=== PATIENT | male | born 1990 | race Caucasian/White ===

== ENCOUNTER 2022-02-07 15:29 | Emergency (ER) | payer OTHER, SELFPAY ==
--- NOTE | ~2022-02-07 | CT_ITS ---
EXAMINATION: CT abdomen pelvis wo con DATE: 02/07/2022 16:55 INDICATION: Possible kidney stone TECHNIQUE: Computed tomography (CT) of the abdomen and pelvis was performed without intravenous contr ast. Automated exposure control and iterative reconstruction technique were employed. The dose-length product was 394.18 mGy-cm. COMPARISON: 03/01/2019. FINDINGS: Lower thorax: Unremarkable Liver: Normal. Biliary/Gallbladder: Gallbladder is normal. No bile duct dilation. Pancreas: No mass or duct dilation. Spleen: Normal. Adrenals:No mass. Kidneys: Mild right hydronephrosis and perinephric stranding. Nonobstructive left lower pole renal ca lcification. GI tract: No small or large bowel dilation. Appendix surgically absent. Mesentery/Peritoneum: No ascites, mass, or free air. Retroperitoneum: No mass. Pelvis: 5 mm obstructing calcification in the distal right ureter. Soft Tissues: Soft tissues and body wall unremarkable. Bones: No acute osseous finding. IMPRESSION: 5 mm distal right ureteral stone causing mild obstructive uropathy Reviewed, dictated and finalized at location K.
[2022-02-07 16:12] VITALS: BP 135/92; PULSE 60; RESP 16; TEMP 36.1; O2SAT 100
--- NOTE | 2022-02-07 16:42 | ED.ABDPAIN ---
HPI - Abdominal Pain General Chief Complaint: Abdominal Pain Stated Complaint: right sided abd pain Time Seen by Provider: 02/07/22 16:41 Related Data Allergies Allergy/AdvReac Type Severity Reaction Status Date / Time No Known Allergies Allergy Unverified 02/07/22 16:30 Course Vital Signs Vital signs: Vital Signs Temperature 36.1 C L 02/07/22 16:12 Pulse Rate 60 02/07/22 16:12 Respiratory Rate 16 02/07/22 16:12 Blood Pressure 135/92 H 02/07/22 16:12 Pulse Oximetry 100 02/07/22 16:12 Oxygen Delivery Room Air 02/07/22 16:12 Temperature 36.1 C L 02/07/22 16:12 Pulse Rate 60 02/07/22 16:12 Respiratory Rate 16 02/07/22 16:12 Blood Pressure 135/92 H 02/07/22 16:12 Pulse Oximetry 100 02/07/22 16:12 Oxygen Delivery Room Air 02/07/22 16:12 MDM - Abdominal Pain Imaging Data Radiologist's impression: Impressions Abdomen/Pelvis CT 02/07/22 17:12 IMPRESSION: 5 mm distal right ureteral stone causing mild obstructive uropathy Discharge Plan Discharge Instructions: Antibiotic Form Follow-up/Referrals: PHYSICIAN NOT ON STAFF,NONSTAFF [Primary Care Provider] -
[2022-02-07] MEDS: ONDANSETRON INJ 4 MG/2 ML VIAL IV PUSH (17:28)
[2022-02-07] MEDS: HYDROmorphone HCL INJ (*CRX) 1 MG/ML SYR 0.5 MG IV PUSH (17:28)
[2022-02-07 17:31] LABS: Basophils Absolute Auto 0.1 K/mm3 (0.0-0.1); Basophils Percent Auto 0.4 % (0.2-1.2); Eosinophils Absolute Auto 0.1 K/mm3 (0-0.3); Eosinophils Percent Auto 1.1 % (0-4.4); Hematocrit 44.7 % (42.0-52.0); Hemoglobin 15.2 g/dL (14.0-18.0); Immature Granulocyte Absolute 0.05 K/mm3 (0.00-0.031); Immature Granulocyte Percent A 0.4 % (0-0.5); Lymphocytes Absolute Auto 2.31 K/mm3 (0.9-3.2); Lymphocytes Percent Auto 20.2 % (18.3-44.2); Mean Corpuscular Volume 88.2 fl (80-100); Monocytes Absolute Auto 0.9 K/mm3 (0.1-0.6); Monocytes Percent Auto 7.8 % (2.6-8.5); Neutrophils Percent Auto 70.1 % (45.5-73.1); Platelet Count Result 303 k/mm3 (150-375); Red Blood Count 5.07 M/mm3 (4.6-6.20); Red Cell Distribution Width 13.6 % (11.5-14.5); White Blood Count 11.4 K/mm3 (4.5-10.0)
[2022-02-07 17:46] LABS: Appearance Urine Clear (Clear); Bilirubin Urine Negative (Negative); Blood Urine 3+ (Negative); Color Urine Yellow (Yellow); Glucose Urine UA Negative (Negative); Ketones Urine Negative (Negative); Leukocyte Esterase Ur Negative LEU/UL (Negative); Nitrate Urine Negative (Negative); Protein Urine Negative (Negative); Specific Grav Ur 1.025 (1.001-1.035); pH Urine 6.5 (5.0-9.0)
[2022-02-07 17:46] LABS: Alanine Aminotransferase 43 U/L (6-50); Albumin Level 4.7 g/dL (3.5-5.1); Alkaline Phosphatase 121 U/L (38-126); Anion Gap 10 mmol/L (8-16); Aspartate Amino Transferase 38 U/L (17-59); Bilirubin,Total 0.5 mg/dL (0.2-1.3); Blood Urea Nitrogen 14 mg/dL (9-20); Calcium 9.9 mg/dL (8.4-10.2); Carbon Dioxide 29 mmol/L (22-30); Chloride 99 mmol/L (98-107); Estimated CRCL calculation 81 ml/min; Estimated Glomerular Filt Rate > 60; Glucose 105 mg/dL (65-110); Lipase 67 U/L (23-300); Sodium 138 mmol/L (137-145)
[2022-02-07 17:54] LABS: Bacteria Urine Trace /hpf; Mucus Urine Rare /lpf; RBC Urine >75 /hpf (0-2); WBC Urine 0-3 /hpf
[2022-02-07 17:57] LABS: Add Urine Microscopic? YES
[2022-02-07] MEDS: KETOROLAC 30 MG/ML VIAL (*BKC) IV PUSH (18:28)
[2022-02-07] MEDS: TAMSULOSIN HCL 0.4 MG CAPSULE PO (18:28)
[2022-02-07 18:48] VITALS: BP 124/83; PULSE 61; RESP 18; O2SAT 96
--- NOTE | 2022-02-15 19:34 | ED.ABDPAIN ---
HPI - Abdominal Pain General Chief Complaint: Abdominal Pain Stated Complaint: right sided abd pain Time Seen by Provider: 02/07/22 16:41 Source: patient and family Mode of arrival: ambulatory Limitations: no limitations History of Present Illness HPI narrative: 31 years old white male presents with right lower quadrant pain and blood in the urine prior to arrival to the emergency room, history of kidney stone. He denies any fever, or chills Related Data Home Medications Medication Instructions Recorded Confirmed fluoxetine 20 mg capsule 20 mg PO DAILY 02/08/22 02/09/22 hydrocodone 5 mg-acetaminophen 325 1 tablet PO Q4H PRN Pain 02/08/22 02/09/22 mg tablet Allergies Allergy/AdvReac Type Severity Reaction Status Date / Time No Known Allergies Allergy Unverified 02/09/22 08:03 Review of Systems Review of Systems: All systems reviewed & are unremarkable except as noted in HPI and below PMFSH Past Medical History Medical History Anxiety Kidney stone Social History Social History Smoking status: Never smoker Alcohol intake: current Drinks per week: 10 Substance use: never Substance use type: does not use Spiritual care concerns: No Exam Narrative: General appearance: Well-developed, well-nourished Skin: Normal color Head: Normocephalic, nontraumatic Eyes: Clear conjunctiva ENT: Oropharynx normal, ears normal, nose normal Neck: Supple, nontender Chest and respiratory: Airway patent, no respiratory distress, no accessory muscle use Heart: Regular rate/rhythm Abdomen: Soft, right flank and right lower quadrant tenderness, no guarding or rebound, no organomegaly, quiet bowel sounds Vascular: Normal peripheral pulses, normal capillary refill. Musculoskeletal: Normal range of motion, nontender back Neurologic: Alert and oriented ?3, OVERLOCK HEMMER is normal as tested, no gross motor deficit Course Course Emergency Course: Kidney stone is my concern. Patient will be admitted for further management Vital Signs Vital signs: Vital Signs Temperature 36.1 C L 02/07/22 16:12 Pulse Rate 60 02/07/22 16:12 Respiratory Rate 16 02/07/22 16:12 Blood Pressure 135/92 H 02/07/22 16:12 Pulse Oximetry 100 02/07/22 16:12 Oxygen Delivery Room Air 02/07/22 16:12 Temperature 36.1 C L 02/07/22 16:12 Pulse Rate 61 02/07/22 18:48 Respiratory Rate 18 02/07/22 18:48 Blood Pressure 124/83 02/07/22 18:48 Pulse Oximetry 96 02/07/22 18:48 Oxygen Delivery Room Air 02/07/22 16:12 MDM - Abdominal Pain Differential Diagnosis Differential diagnosis: Likely abdominal pain, acute appendicitis, calculus of kidney, constipation and diverticulitis Lab Data Result diagrams: 02/07/22 17:08 02/07/22 17:08 Labs: Lab Results 02/07/22 02/07/22 02/07/22 Range/Units 17:08 17:08 17:38 WBC 11.4 H (4.5-10.0) K/mm3 RBC 5.07 (4.6-6.20) M/mm3 Hgb 15.2 (14.0-18.0) g/dL Hct 44.7 (42.0-52.0) % MCV 88.2 (80-100) fl MCH 30.0 (26-34) pg MCHC 34.0 (32-36) g/dl RDW 13.6 (11.5-14.5) % Plt Count 303 (150-375) k/mm3 MPV 9.0 (7.4-10.4) fl Immature Gran % (Auto) 0.4 (0-0.5) % Neut % (Auto) 70.1 (45.5-73.1) % Lymph % (Auto) 20.2 (18.3-44.2) % [place] % (Auto) 7.8 (2.6-8.5) % Eos % (Auto) 1.1 (0-4.4) % Baso % (Auto) 0.4 (0.2-1.2) % Lymph # (Auto) 2.31 (0.9-3.2) K/mm3 [place] # (Auto) 0.9 H (0.1-0.6) K/mm3 Eos # (Auto) 0.1 (0-0.3) K/mm3 Baso # (Auto) 0.1 (0.0-0.1) K/mm3 Abs Immat Gran (auto) 0.05 H
== END 2022-02-07 18:51 | disposition home or self-care (01) ==
PROVIDERS: Emergency Provider Emergency Medicine
DX: N13.9 Obstructive and reflux uropathy, unspecified (principal); N20.1 Calculus of ureter; F41.9 Anxiety disorder, unspecified; Z87.442 Personal history of urinary calculi
CPT/HCPCS: 36415; 74176; 80053; 81001; 83690; 85025; 96374; 96375; 99284; A9270; J1170; J1885; J2405

== ENCOUNTER 2022-02-09 01:06 | Day surgery (SDC) | payer OTHER, SELFPAY ==
[2022-02-08 15:38] VITALS: BMI 32.0
--- NOTE | 2022-02-08 15:43 | PC.NURSE ---
Report to the Outpatient Waiting Room, entrance under the green pavilion located off [facility], at time 0830 on date 02/09/22. OR Time: 1030. - You and your visitor will be asked to self-screen and do not enter if you have any COVID symptoms. - Only one visitor and NO children visitors are allowed at this time. - The patient visitor is requested to leave or wait in car when not with patient due to restrictions. - A mask is required within the hospital. Patients may have clear liquids (water, carbonated beverages, clear teas, apple juice) until 3 hours prior to surgery with a maximum of 20 ounces. - No food from midnight until time of surgery Take the following medications with a SIP of water the morning of surgery: FLUOXETINE, PAIN PILL (IF NEEDED) Medications to discontinue per physician: N/A Date to take last dose: N/A Please no make-up, nail [place], hairspray, perfume, deodorant, or body powder the day of surgery. No jewelry (including any body piercings) or valuables the day of surgery, leave them at home. Please take a shower or bath the night before, or the morning of, surgery with an antibacterial soap. Wear comfortable, loose fitting clothing. - Jewelry must be removed prior to entering the operating room. Rings and piercings that are not removed may be cut off. - The hospital will not accept responsibility for valuables. - Please leave all valuables, including medications, at home the day of surgery. If you are going home after surgery, a licensed restaurant delivery driver must drive you home. - NO public transportation without another adult. - We recommend that an adult stay with you for 24 hours following discharge. - We also recommend that you do not drive, make important decision, drink alcoholic beverages, or take any drugs that were not prescribed by your health care provider for at least 24 hours after your discharge time. Follow any additional instructions given to you from your surgeon. If you or anyone in your household have experienced Covid symptoms in the past week, please notify your surgeon or the nurse liaison at the phone number below for possible testing. Telephone instructions given to PT - SONIA FRENCH and asked if any additional questions and then verbalized understanding. Patient advised to call surgeon office or pre surgery nurse liaison [phone] if any additional questions.
[2022-02-09] VITALS (8 sets, daily range): BP systolic 112–127; BP diastolic 62–79; PULSE 62–77; RESP 16–20; TEMP 36.4–36.8; O2SAT 93–99
--- NOTE | ~2022-02-09 | XR_ITS ---
EXAMINATION: XR fluoroscopy no charge DATE: 02/09/2022 11:25 INDICATION: Right-sided ureteral stone extraction TECHNIQUE: 2 fluoroscopic images of the pelvis and lower abdomen were obtained during procedure perfo rmed by Dr. Silverman. Radiologist was not present for the imaging or procedure. The amount of fluorosco py time used during this procedure was 0.6 minutes. COMPARISON: None. FINDINGS: Images demonstrate a wire advanced along the expected course of the distal right ureter. The stone se en on the prior KUB is not visualized and may have been extracted. IMPRESSION: 1. Fluoroscopy utilized during reported right ureteral stone extraction. See procedure note for furth er detail. Reviewed, dictated and finalized at location A. IMPRESSION: 1. Fluoroscopy utilized during reported right ureteral stone extraction. See pr ocedure note for further detail.
--- NOTE | ~2022-02-09 | XR_ITS ---
EXAMINATION: XR abdomen/kub 1V DATE: 02/09/2022 08:26 INDICATION: Renal stone for planned lithotripsy. TECHNIQUE: A supine view of the abdomen on 2 radiographs was obtained. COMPARISON: CT dated 02/07/2022 FINDINGS: 3 mm gallstone at the distalmost right ureter. A second 2 2 mm stone is subtly visible at the lower p ole of the left kidney. Normal bowel gas pattern. Mild lumbar levocurvature. IMPRESSION: 1. Bilateral nephrolithiasis at the lower pole of the left kidney and in the distalmost right ureter. Reviewed, dictated and finalized at location A. IMPRESSION: 1. Bilateral nephrolithiasis at the lower pole of the left kidney and in the di stalmost right ureter.
--- NOTE | 2022-02-09 08:24 | SUR.PREOP ---
Patient concerned that pain is gone thinks he may have passed the stone though hasn't found in strainer. Discussed with Dr Silverman office and took patient for KUB but also informed patient lack of pain doesn't necessarily mean he's passed the stone.
--- NOTE | 2022-02-09 08:43 | WPDANESEPPF ---
Anes - Initial Pre Proc Eval Procedure: Operation Date: 02/09/22 10:30 Proposed Procedures p Cystoscopy, Right Ureteroscopy, Right Retrograde Pyelogram, Possible Right Stone Extraction, Possible Right Stent Placement, Possible Holmium Laser Procedure - Richard Silverman MD Date/Time: 02/09/22 08:43 Surgeon: Richard Silverman MD Pre Op Diagnosis: Right ureteral stone Patient Data Age: 31 Gender: M Height: 1.77 m Weight: 101.1 kg Last Vital Signs Temp 36.4 C L 02/09/22 08:29 Pulse 68 02/09/22 08:29 Resp 16 02/09/22 08:29 BP 121/79 02/09/22 08:29 Pulse Ox 99 02/09/22 08:29 O2 Del Method Room Air 02/09/22 08:29 Allergies Allergy/AdvReac Type Severity Reaction Status Date / Time No Known Allergies Allergy Unverified 02/09/22 08:03 Home Medications Medication Instructions Recorded Confirmed Type ondansetron 4 mg disintegrating 4 mg PO Q4H 3 days #18 tabs 02/07/22 02/08/22 Rx tablet tamsulosin 0.4 mg capsule (Flomax) 0.4 mg PO DAILY #14 caps 02/07/22 02/09/22 Rx fluoxetine 20 mg capsule 20 mg PO DAILY 02/08/22 02/09/22 History hydrocodone 5 mg-acetaminophen 325 1 tablet PO Q4H PRN Pain 02/08/22 02/09/22 History mg tablet Other studies: Abdomen/Pelvis CT? 02/07/22 17:12 IMPRESSION: ? 5 mm distal right ureteral stone causing mild obstructive uropathy Patient hx anesthesia problems: none Family hx anesthesia problems: none Results Review: All pre-operative results and documents have been reviewed as part of the pre-operative evaluation. [facility] Past Medical History Medical History (Updated 02/09/22 @ 08:44 by Cassius Gomez MD) Anxiety Kidney stone Social History Social History Smoking status: Never smoker Alcohol intake: current Drinks per week: 10 Substance use: never Substance use type: does not use Living arrangements: alone Spiritual care concerns: No Anes - Eval Final PreProcedure Day of Procedure 02/09/22 08:43 Patient weight: obese Heart: regular rate and rhythm Lungs: clear to auscultation and normal air movement Airway: Mallampati scale class II Neurological: alert and oriented Last oral intake: >/= 8 hours ASA classification: II Emergent: no Anesthetic plan: proceed Anesthesia type and monitoring: general LMA Results Review: All pre-operative results and documents have been reviewed as part of the pre-operative evaluation. Informed Consent: The patient's anesthetic plan and its attendant risks and benefits were discussed with the patient/family/POA. Questions were solicited and answers provided to the satisfaction of the patient/family/POA.
[2022-02-09] MEDS: LACTATED RINGERS 1,000 ML 30 ML IV CONT (09:14)
--- NOTE | 2022-02-09 10:42 | WPDHPUPDATE1 ---
History and Physical Update Update Date/Time: 02/09/22 10:42 History and Physical has been reviewed, including an updated exam of the patient. There are NO changes in the patient's condition. Risks, benefits, and alternatives have been discussed and questions answered. Patient agrees to proceed with procedure.
[2022-02-09] MEDS: ceFAZolin 2 GM/D5W 50 ML 2 GM/50 ML BAG IVPB (10:45)
[2022-02-09] MEDS: LIDOCAINE HCL 2% GEL UROJET 10 ML PKG MUCOUS MEM (11:10)
[2022-02-09] MEDS: KETOROLAC 30 MG/ML VIAL (*BKC) IV PUSH (11:20)
--- NOTE | 2022-02-09 11:22 | W.PM.PROC2 ---
Procedure Note - Detailed Date of Procedure 02/09/22 Pre-op Diagnosis Right ureteral stone Post-op Diagnosis Same Procedure Performed Cystoscopy, right ureteroscopy with stone extraction Surgeon Richard Silverman MD Description of Procedure The patient was brought to the operative suite where he is prepped and draped in a routine sterile fashion while in the dorsal lithotomy position after the uneventful induction of a general LMA anesthetic. A 19F rigid cystoscope was placed in the bladder. There are no urethral strictures. His prostatic urethra measures, approximately, 1.5cm with no median lobe enlargement. The bladder mucosa was endoscopically normal without hyperemia or neoplasm. There was a single, orthotopic ureteral orifice bilaterally. A 0.035 glidewire was advanced into the right renal pelvis under fluoroscopy. The distal ureter was dilated with an 8F/10F ureteral dilator. Ureteroscopy was undertaken with a short, tapered, semi-rigid ureteroscope and the stone was extracted with ease using a 1.9F Escape disposable stone basket. Due to the ease of this manipulation I opted not to place a ureteral stent. The patient's bladder was emptied and was taken to the recovery room having tolerated this procedure well. Drains No Packing No Pathology None sent Complications No immediate complications
== END 2022-02-09 12:46 | disposition home or self-care (01) ==
PROVIDERS: Visit Provider Urology
PROC: (CPT 52352; principal; 2022-02-09 10:30)
DX: N20.1 Calculus of ureter (principal)
CPT/HCPCS: 52352; 74018; 82365; 88300; 99199; A9270; C1769; J0690; J1100; J1885; J2250; J2405; J2704; J3010; J7120

== ENCOUNTER 2022-02-11 09:05 | Emergency (ER) | payer OTHER, SELFPAY ==
--- NOTE | ~2022-02-11 | CT_ITS ---
EXAMINATION: CT abdomen pelvis wo con DATE: 02/11/2022 09:35 INDICATION: Right flank pain TECHNIQUE: Computed tomography (CT) of the abdomen and pelvis was performed without intravenous contr ast. The dose-length product (DLP) was 335.78 mGy-cm. Automated exposure control and iterative recons truction technique were employed. COMPARISON: 02/07/2022 FINDINGS: Minimal dependent atelectasis is present in the lung bases. The heart size is normal. The l iver, spleen, pancreas, gallbladder, and adrenal glands are normal. There is a [address] one of the left kidney lower pole. The previously described right ureteral stone is no longer evident , consistent with interval treatment or passage. No stone fragments are identified in the urinary petty dder. There is mild persistent right hydroureteronephrosis. No pathologically enlarged abdominal or p elvic lymph nodes are identified. There is no free intraperitoneal gas or evidence of bowel obstructi on. There is a small umbilical hernia containing fat. IMPRESSION: 1. Interval treatment or passage of the previously described right distal ureteral stone with mild pe rsistent right hydroureteronephrosis. 2. Nonobstructing left nephrolithiasis. Reviewed, dictated and finalized at location B. IMPRESSION: 1. Interval treatment or passage of the previously described right distal urete ral stone with mild persistent right hydroureteronephrosis. 2. Nonobstructing left nephrolithiasis.
[2022-02-11 09:22] VITALS: BP 135/97; PULSE 57; RESP 18; TEMP 36.1; O2SAT 97
--- NOTE | 2022-02-11 09:22 | ED.BACK ---
HPI - Back Pain/Injury General Chief Complaint: Back Pain/Injury Stated Complaint: R FLANK PAIN S/P STONE EXTRACTION Time Seen by Provider: 02/11/22 09:12 Source: patient Mode of arrival: ambulatory Limitations: no limitations History of Present Illness HPI Narrative: 31 years old white female presents with right flank pain started yesterday, intermittent, no aggravating or relieving factors. Patient is status post right ureter kidney stone removed 2 days ago. Patient denies any fever, chills, nausea, vomiting. Currently denies any pain, patient received Clark prior to arrival to the emergency room Related Data Home Medications Medication Instructions Recorded Confirmed fluoxetine 20 mg capsule 20 mg PO DAILY 02/08/22 02/09/22 hydrocodone 5 mg-acetaminophen 325 1 tablet PO Q4H PRN Pain 02/08/22 02/09/22 mg tablet Allergies Allergy/AdvReac Type Severity Reaction Status Date / Time No Known Allergies Allergy Unverified 02/09/22 08:03 Review of Systems Review of Systems: All systems reviewed & are unremarkable except as noted in HPI and below PMFSH Past Medical History Medical History Anxiety Kidney stone Social History Social History Smoking status: Never smoker Alcohol intake: current Drinks per week: 10 Substance use: never Substance use type: does not use Spiritual care concerns: No Exam Narrative: General appearance: Well-developed, well-nourished Skin: Normal color Head: Normocephalic, nontraumatic Eyes: Clear conjunctiva ENT: Oropharynx normal, ears normal, nose normal Neck: Supple, nontender Chest and respiratory: Airway patent, no respiratory distress, no accessory muscle use Heart: Regular rate/rhythm Abdomen: Soft, nontender, no organomegaly, quiet bowel sounds Vascular: Normal peripheral pulses, normal capillary refill. Musculoskeletal: Normal range of motion, nontender back Neurologic: Alert and oriented ?3, [employer]ER is normal as tested, no gross motor deficit Course Consultations Consultation #1: dr alba. Discharge Patient on anti-inflammatory medication. Date: 02/11/22 Time: 11:50 Vital Signs Vital signs: Vital Signs Temperature 36.1 C L 02/11/22 09:22 Pulse Rate 57 L 02/11/22 09:22 Respiratory Rate 18 02/11/22 09:22 Blood Pressure 135/97 H 02/11/22 09:22 Pulse Oximetry 97 02/11/22 09:22 Oxygen Delivery Room Air 02/11/22 09:22 Temperature 36.1 C L 02/11/22 09:22 Pulse Rate 57 L 02/11/22 09:22 Respiratory Rate 18 02/11/22 09:22 Blood Pressure 135/97 H 02/11/22 09:22 Pulse Oximetry 97 02/11/22 09:22 Oxygen Delivery Room Air 02/11/22 09:22 MDM - Back Pain/Injury Lab Data Result diagrams: 02/11/22 09:30 02/11/22 09:30 Labs: Lab Results 02/11/22 02/11/22 02/11/22 Range/Units 09:30 09:30 09:30 WBC 8.2 (4.5-10.0) K/mm3 RBC 4.97 (4.6-6.20) M/mm3 Hgb 14.8 (14.0-18.0) g/dL Hct 44.6 (42.0-52.0) % MCV 89.7 (80-100) fl MCH 29.8 (26-34) pg MCHC 33.2 (32-36) g/dl RDW 13.5 (11.5-14.5) % Plt Count 283 (150-375) k/mm3 MPV 8.8 (7.4-10.4) fl Immature Gran % (Auto) 0.4 (0-0.5) % Neut % (Auto) 54.3 (45.5-73.1) % Lymph % (Auto) 33.1 (18.3-44.2) % [place] % (Auto) 8.8 H (2.6-8.5) % Eos % (Auto) 2.7 (0-4.4) % Baso % (Auto) 0.7 (0.2-1.2) % Lymph # (Auto) 2.70 (0.9-3.2) K/mm3 [place] # (Auto) 0.7 H (0.1-0.6) K/mm3 Eos # (Auto) 0.2 (0-0.3) K/mm3 Baso # (Auto) 0.1 (0.0-0.1) K/mm3 Abs Immat Gran (auto) 0.03 (0.00-0.031) K/mm3
[2022-02-11 09:37] LABS: Basophils Absolute Auto 0.1 K/mm3 (0.0-0.1); Basophils Percent Auto 0.7 % (0.2-1.2); Eosinophils Absolute Auto 0.2 K/mm3 (0-0.3); Eosinophils Percent Auto 2.7 % (0-4.4); Hematocrit 44.6 % (42.0-52.0); Hemoglobin 14.8 g/dL (14.0-18.0); Immature Granulocyte Absolute 0.03 K/mm3 (0.00-0.031); Immature Granulocyte Percent A 0.4 % (0-0.5); Lymphocytes Percent Auto 33.1 % (18.3-44.2); Mean Corpuscular HGB Conc 33.2 g/dl (32-36); Mean Corpuscular Hemoglobin 29.8 pg (26-34); Mean Corpuscular Volume 89.7 fl (80-100); Mean Platelet Volume 8.8 fl (7.4-10.4); Monocytes Absolute Auto 0.7 K/mm3 (0.1-0.6); Monocytes Percent Auto 8.8 % (2.6-8.5); Neutrophils Absolute Auto 4.4 K/mm3 (1.3-6.7); Neutrophils Percent Auto 54.3 % (45.5-73.1); Platelet Count Result 283 k/mm3 (150-375); Red Blood Count 4.97 M/mm3 (4.6-6.20); Red Cell Distribution Width 13.5 % (11.5-14.5); White Blood Count 8.2 K/mm3 (4.5-10.0)
[2022-02-11 09:38] LABS: Appearance Urine Cloudy (Clear); Bilirubin Urine Negative (Negative); Blood Urine 3+ (Negative); Color Urine Yellow (Yellow); Glucose Urine UA Negative (Negative); Ketones Urine Negative (Negative); Leukocyte Esterase Ur Negative LEU/UL (Negative); Nitrate Urine Negative (Negative); Protein Urine Trace mg/dL (Negative); Urobilinogen Urine 0.2 mg/dL (<2.0)
[2022-02-11 09:43] LABS: Mucus Urine Rare /lpf; RBC Urine >75 /hpf (0-2)
[2022-02-11 09:47] LABS: Alanine Aminotransferase 64 U/L (6-50); Albumin Level 4.5 g/dL (3.5-5.1); Alkaline Phosphatase 95 U/L (38-126); Anion Gap 6 mmol/L (8-16); Aspartate Amino Transferase 53 U/L (17-59); Bilirubin,Total 0.3 mg/dL (0.2-1.3); Blood Urea Nitrogen 17 mg/dL (9-20); Calcium 9.2 mg/dL (8.4-10.2); Carbon Dioxide 32 mmol/L (22-30); Chloride 100 mmol/L (98-107); Estimated Glomerular Filt Rate > 60; Glucose 98 mg/dL (65-110); Potassium 4.3 mmol/L (3.4-5.0); Sodium 138 mmol/L (137-145)
[2022-02-11 09:58] LABS: Add Urine Microscopic? YES
[2022-02-11 12:06] VITALS: BP 133/77; PULSE 88; RESP 16; O2SAT 100
== END 2022-02-11 12:07 | disposition home or self-care (01) ==
PROVIDERS: Emergency Provider Emergency Medicine
DX: N13.30 Unspecified hydronephrosis (principal); N20.0 Calculus of kidney; F41.9 Anxiety disorder, unspecified; Z87.442 Personal history of urinary calculi
CPT/HCPCS: 36415; 74176; 80053; 81001; 85025; 99284